=== PATIENT | male | born 1950 | race Caucasian/White ===

== ENCOUNTER → 2019-01-27 | Day surgery (SDC) | payer MEDICARE | LOC: NAV ER/OP 14:26 | PROVIDERS: ATTEND Emergency Medicine Emergency Medical Services | DX: Z45.2 Encounter for adjustment and management of vascular access device (principal) | CPT/HCPCS: J1642 ==

== ENCOUNTER → 2019-01-28 | Day surgery (SDC) | payer MEDICARE | LOC: NAV ER/OP 14:11 | PROVIDERS: ATTEND Orthopaedic Surgery | DX: Z45.2 Encounter for adjustment and management of vascular access device (principal); M00.9 Pyogenic arthritis, unspecified | CPT/HCPCS: J1642 ==

== ENCOUNTER → 2019-01-29 | Day surgery (SDC) | payer MEDICARE | LOC: NAV ER/OP 11:58 | PROVIDERS: ATTEND Orthopaedic Surgery | DX: M00.9 Pyogenic arthritis, unspecified (principal) | CPT/HCPCS: J1642 ==

== ENCOUNTER 2020-05-27 12:17 | Outpatient (CLI) | payer MEDICARE ==
[2020-05-27 16:35] LABS: #Eosinphils 0.1 thou/uL (0.0-0.7); #Monocytes 1.1 thou/uL (0.11-0.59); #Neutrophils 5.9 thou/uL (1.40-6.50); %Basophils 0.5 % (0.0-1.0); %Eosinophils 1.3 % (0.0-10.0); %Lymphocytes 11.8 % (21.0-51.0); %Monocytes 13.8 % (0.0-10.0); %Neutrophils 72.6 % (42.0-75.0); Hemoglobin 14.1 g/dL (14.0-18.0); Mean Corpuscular HGB CONC 33.9 g/dL (32.0-36.0); Mean Corpuscular Hemoglobin 32.3 pg (27.0-31.0); Mean Corpuscular Volume 95.5 fL (78.0-98.0); Mean Platelet Volume 8.6 fL (7.4-10.4); Platelet Count 222 thou/uL (130-400); RBC Distribution Width 12.1 % (11.5-14.5); Red Blood Cell (RBC) Count 4.37 mill/uL (4.70-6.10); White Blood Cell (WBC) Count 8.1 thou/uL (4.8-10.8)
[2020-05-27 17:04] LABS: PSA-Asymptomatic (SCREENING) 0.96 ng/mL (0-4.0); Thyroid Stimulating Hormone 0.9921 uIU/mL (0.35-4.94)
[2020-05-27 17:05] LABS: ALT (SGPT) 18 U/L (8-55); AST (SGOT) 22 U/L (5-34); Albumin 4.3 g/dL (3.4-4.8); Alkaline Phosphatase 68 U/L (40-110); Anion Gap 13 mmol/L (10-20); BUN (Urea Nitrogen) 15 mg/dL (8.4-25.7); Bilirubin, Total 0.5 mg/dL (0.2-1.2); Calc. Creatinine Clearance 0 mL/min (70-130); Carbon Dioxide 27 mmol/L (23-31); Cardiac Risk 4.6 (Less than 4.5); Chloride 101 mmol/L (98-107); Cholesterol 239 mg/dl (< 200 Desired); Globulin 3.3 g/dL (2.4-3.5); Glucose 90 mg/dL (80-115); HDL Cholesterol 52 mg/dL (>60 Neg Risk); LDL Cholesterol, Calculated 172 mg/dL; Potassium 4.5 mmol/L (3.5-5.1); Protein, Total 7.6 g/dL (5.8-8.1); Sodium 136 mmol/L (136-145); Triglycerides 76 mg/dL (Less than 150)
[2020-05-27 17:21] LABS: Bilirubin Negative (Negative); Blood, Urine Negative (Negative); Clarity Clear (Clear); Glucose, Urine (Dipstick) Normal (Negative); Ketone, Urine Negative (Negative); Leukocyte Negative Leu/uL (Negative); Nitrite Negative (Negative); Protein, Urine (Dipstick) Negative (Neg-Trace); Specific Gravity, Urine 1.004 (1.002-1.036); Urobilinogen Normal mg/dL (Less than 2); pH, Urine 6.5 (5.0-9.0)
== END 2020-05-27 12:18 | disposition home or self-care (01) ==
LOC: NAV LABSP 12:17
PROVIDERS: ATTEND Internal Medicine
DX: N40.1 Benign prostatic hyperplasia with lower urinary tract symptoms (principal); N52.9 Male erectile dysfunction, unspecified; E78.2 Mixed hyperlipidemia
CPT/HCPCS: 36415; 80053; 80061; 81003; 84443; 85025; G0103